=== PATIENT | female | born 1980 | race Caucasian/White ===

== ENCOUNTER → 2020-12-19 | Outpatient (CLI) | payer BC, OTHER | LOC: RAD 13:35 | DX: J18.9 Pneumonia, unspecified organism (principal) | CPT/HCPCS: 71046 ==

== ENCOUNTER 2022-05-16 13:04 | Inpatient (IN) | payer BC ==
[~2022-05-16] VITALS: Ht 157.5 cm; Wt 84.9 kg
[2022-05-16 14:00] LABS: HEMOGLOBIN 14.1 gm/dl (12.3-15.3); RED BLOOD COUNT 4.91 M/UL (4.00-5.10)
[2022-05-16 14:22] LABS: BUN/CREATININE RATIO 16 (0-10)
[2022-05-16 14:25] LABS: WHITE BLOOD COUNT 35.6 K/UL (4.5-11.0)
[2022-05-17] MEDS ORDERED: VORT20TA PO (03:26)
[2022-05-17] MEDS ORDERED: AMITRIPTYLINE H25 MG PO (03:27)
[2022-05-17] MEDS ORDERED: DESYREL 50 MG T50 MG PO ×2 (03:28→09:13)
[2022-05-17] MEDS ORDERED: AMETHIA 0.15-01 EACH PO (03:28)
[2022-05-17] MEDS ORDERED: LEVOTHYROXINE175 MCG PO (03:29)
[2022-05-17] MEDS ORDERED: METOCLOPRAMIDE10 MG PO (03:29)
[2022-05-17] MEDS ORDERED: GABAPENTIN800 MG PO (03:30)
[2022-05-17] MEDS ORDERED: FLUOXETINE HCL40 MG PO (03:31)
[2022-05-17] MEDS ORDERED: WELLBUTRIN XL300 M1 PO (03:31)
[2022-05-17] MEDS ORDERED: VRAYLAR4.5 MG PO (03:31)
[2022-05-17] MEDS ORDERED: OMEPRAZOLE40 MG PO (03:32)
[2022-05-17] MEDS ORDERED: LEVOCETIRIZINE D5 MG PO (03:33)
[2022-05-17] MEDS ORDERED: NOVOLOG 10100 UNITS/ INJ (03:34)
[2022-05-17] MEDS ORDERED: PROLOPRIM 100100 MG PO (03:36)
[2022-05-17] MEDS ORDERED: TIZANIDINE HCL4 MG PO (03:37)
[2022-05-17] MEDS ORDERED: LIOTHYRONINE SO5 MCG PO (03:41)
[2022-05-17] MEDS ORDERED: INDERAL TAB 2020 MG PO (03:41)
[2022-05-17] MEDS ORDERED: CATAPRES 0.1MG0.1 MG PO (03:42)
[2022-05-17] MEDS ORDERED: EQ SINUS CONGE1 EAC1 PO (03:43)
[2022-05-17] MEDS ORDERED: ATENOLOL25 MG PO (03:43)
[2022-05-17] MEDS ORDERED: FAMOTIDINE20 MG PO (04:29)
[2022-05-17] MEDS ORDERED: BUPROPION XL150 MG PO (09:14)
[2022-05-17 09:33] LABS: RED BLOOD COUNT 4.12 M/UL (4.00-5.10); WHITE BLOOD COUNT 26.4 K/UL (4.5-11.0)
[2022-05-17 09:38] LABS: BUN/CREATININE RATIO 14 (0-10)
--- NOTE | 2022-05-17 12:01 | NUR ---
CALLED REPORT TO ZACARIAS CRUZ [facility]
[2022-05-17 14:35] LABS: BUN/CREATININE RATIO 14 (0-10)
[2022-05-17 18:30] LABS: BUN/CREATININE RATIO 16 (0-10)
[2022-05-17] MEDS ORDERED: PROAIR HFA8.5 GM INH (19:52)
[2022-05-17] MEDS ORDERED: SYMBICORT 16010.2 GM INH (19:53)
[2022-05-17 23:07] LABS: BUN/CREATININE RATIO 16 (0-10)
[2022-05-18 06:18] LABS: HEMOGLOBIN 12.2 gm/dl (12.3-15.3); RED BLOOD COUNT 4.23 M/UL (4.00-5.10); WHITE BLOOD COUNT 28.4 K/UL (4.5-11.0)
[2022-05-18 06:30] LABS: BUN/CREATININE RATIO 14 (0-10)
[2022-05-19 07:49] LABS: BUN/CREATININE RATIO 15 (0-10)
[2022-05-19] MEDS ORDERED: VORT20TA PO (08:37)
[2022-05-19 09:48] LABS: WHITE BLOOD COUNT 24.6 K/UL (4.5-11.0)
[2022-05-19 10:33] LABS: HEMOGLOBIN 10.2 gm/dl (12.3-15.3); RED BLOOD COUNT 3.68 M/UL (4.00-5.10)
[2022-05-20 06:07] LABS: HEMOGLOBIN 10.5 gm/dl (12.3-15.3); RED BLOOD COUNT 3.72 M/UL (4.00-5.10); WHITE BLOOD COUNT 27.8 K/UL (4.5-11.0)
[2022-05-20 10:35] LABS: BUN/CREATININE RATIO 16 (0-10)
[2022-05-21 01:45] LABS: HEMOGLOBIN 9.5 gm/dl (12.3-15.3); RED BLOOD COUNT 3.41 M/UL (4.00-5.10); WHITE BLOOD COUNT 21.8 K/UL (4.5-11.0)
[2022-05-21] MEDS ORDERED: LEVOFLOXACIN250 MG PO (12:02)
[2022-05-21] MEDS ORDERED: HYDROCODON-ACE1 EAC6 PO (12:02)
[2022-05-21] MEDS ORDERED: FLAGYL 250 MG250 MG PO (12:02)
[2022-05-21] MEDS ORDERED: PREDNISONE 10 M10 MG PO (12:02)
[2022-05-21] MEDS ORDERED: ATENOLOL25 MG PO (12:02)
[2022-05-21] MEDS ORDERED: SYMBICORT 16010.2 GM INH (12:07)
== END 2022-05-21 14:27 | disposition home or self-care (01) | DRG 871 ==
LOC: ER1 13:04 → CDU 18:23 → CCU 18:23 → PROG CARE 05-17 01:51 → CCU 05-17 12:15 → PROG CARE 05-20 19:47
PROVIDERS: Internal Medicine; Internal Medicine Pulmonary Disease; Student in an Organized Health Care Education/Training Program; ADMIT Internal Medicine
PROC: 3E03329 Introduction of Other Anti-infective into Peripheral Vein, Percutaneous Approach (ICD-10-PCS; 2022-05-16)
PROC: 0F9430Z Drainage of Gallbladder with Drainage Device, Percutaneous Approach (ICD-10-PCS; principal; 2022-05-18)
DX: A41.9 Sepsis, unspecified organism (principal); E10.10 Type 1 diabetes mellitus with ketoacidosis without coma; G93.41 Metabolic encephalopathy; K85.90 Acute pancreatitis without necrosis or infection, unspecified; K81.0 Acute cholecystitis; J45.901 Unspecified asthma with (acute) exacerbation; E87.1 Hypo-osmolality and hyponatremia; I11.0 Hypertensive heart disease with heart failure; E03.9 Hypothyroidism, unspecified; F17.210 Nicotine dependence, cigarettes, uncomplicated; I50.9 Heart failure, unspecified; R74.01 Elevation of levels of liver transaminase levels; E86.0 Dehydration; Z96.41 Presence of insulin pump (external) (internal); F32.A Depression, unspecified; Z79.4 Long term (current) use of insulin; Z88.8 Allergy status to other drugs, medicaments and biological substances; Z91.018 Allergy to other foods
CPT/HCPCS: ECHO; 36415; 36600; 71045; 76705; 80048; 80053; 80076; 80202; 81001; 82150; 82550; 82553; 82803; 82962; 83540; 83550; 83605; 83690; 83735; 83880; 83930; 84100; 84439; 84443; 84484; 84703; 85025; 85027; 85610; 85652; 85730; 86140; 87040; 87070; 87075; 87081; 87205; 93005; 93306; 94640; 94664; 94760; 96361; 96365; 96366; 96375; 96376; 99285; C1729; C9113; J0360; J1170; J1650; J1940; J2185; J2270; J2405; J3370; J3475; J7070; Q9967; U0002